=== PATIENT | male | born 1960 | race Caucasian/White ===

== ENCOUNTER 2019-05-16 21:21 | Emergency (ER) | payer OTHER ==
[2019-05-16 21:26] VITALS: BP 182/91
--- NOTE | 2019-05-16 21:28 | ER Report ---
History and Physical Time Seen By MD: 21:25 HPI/ROS CHIEF COMPLAINT: Olga in thumb HISTORY OF PRESENT ILLNESS: 58-year-old male patient presents to emergency room with complaint of a fishhook stuck in his right thumb. Patient states that he was fishing, he had caught a fish and fish was struggling. He states he was trying to get the [place] but fish and got himself caught the same time. He states that he tried to get the book elbow was unable to. He states his last tetanus shot was within the last year. Allergies: Coded Allergies: No Known Drug Allergies (Unverified , 05/16/19) Past Medical/Surgical History Patient has a past medical history of hypertension. Patient denies any surgical history. Reviewed Nurses Notes: Yes Constitutional Vital Sign - Last 24 Hours 05/16/19 21:26 Temp 97.5 Pulse 73 Resp 14 B/P (MAP) 182/91 Pulse Ox 93 O2 Delivery Room Air Physical Exam General appearance: Alert no distress. Respiratory: Chest is non tender, lungs are clear to auscultation. Cardiac: Regular rate and rhythm. Skin: Patient has a fishhook in the lateral aspect of the right thumb. Patient has good sensation, good flexion extension of the thumb. DIFFERENTIAL DIAGNOSIS: After history and physical exam differential diagnosis was considered for fishhook injury to right thumb. Medical Decision Making ED Course/Re-evaluation ED Course Patient was admitted on exam room, history of physical were obtained. Differential diagnoses were considered. On examination lungs are clear, heart is regular. Patient does have a fish hook that is stuck in the lateral aspect of the right thumb. The area was anesthetized using 1% lidocaine. When he stated he was adequately anesthetized I forestry support specialist the fish hook with needle drivers, and was able to pull the fishhook out. Patient tolerated procedure well. The thumb was cleaned and bandaged. He was discharged home. He for sinus infection. He is return to emergency room with any concerns. He is to follow-up with his primary care provider the next 1-2 weeks. Patient verbalized understanding and agreement with plan. Decision to Disposition Date: May 16, 2019 Decision to Disposition Time: 21:38 Depart Departure Latest Vital Signs Vital Signs Date Time Temp Pulse Resp B/P (MAP) Pulse Ox O2 Delivery O2 Flow Rate FiO2 05/16/19 21:26 97.5 73 14 182/91 93 Room Air Impression: Primary Impression: Fish hook injury of finger Condition: Improved Disposition: HOME OR SELF-CARE Patient Instructions: GENERAL ER DISCHARGE INSTRUCTIONS Additional Instructions: Monitor for signs of infection; redness, swelling, heat, discharge, increasing pain or red streaking. Take Tylenol or Ibuprofen as needed for pain. Return to the ER with any concerns. You may change dressing as needed. Follow-up with primary care provider in the next 1-2 weeks with any concerns. Problem Qualifiers Primary Impression: Fish hook injury of finger Encounter type: initial encounter Laterality: right Qualified Codes: S69.91XA - Unspecified injury of right wrist, hand and finger(s), initial encounter LORENZO RODRÍGUEZ May 16, 2019 21:28
== END 2019-05-16 21:39 | disposition home or self-care (01) ==
LOC: ER 21:33
DX: S61.041A Puncture wound with foreign body of right thumb without damage to nail, initial encounter (principal); Y93.89 Activity, other specified; Y99.8 Other external cause status
CPT/HCPCS: 99283